=== PATIENT | female | born 1945 | race Caucasian/White ===

== ENCOUNTER 2016-12-30 22:53 | Inpatient (IN) | payer MEDICARE ==
[2016-12-30 23:38] LABS: Bilirubin Negative (Negative); Blood, Urine Moderate (Negative); Glucose, Urine (Dipstick) Negative (Negative); Ketone, Urine Negative (Negative); Nitrite Positive (Negative); Protein, Urine (Dipstick) 30 mg/dL (Neg-Trace); Urobilinogen 0.2 mg/dL (0.2-1.0)
[2016-12-30 23:39] LABS: Bacteria/HPF 1+ HPF (None Seen)
[2016-12-30] MEDS ORDERED: Vancomycin HCl 1.25 GM in Sodium Chloride 0.9% 250 ML 250 ML IVPB SCH (23:45)
[2016-12-30 23:51] LABS: RBC/HPF GREATER THAN 50-TNTC HPF (0-3)
[2016-12-30 23:52] LABS: Hyaline Casts/LPF NONE SEEN LPF (0-3 Hyaline); Transitional Epithelial 0-3 HPF (0-3); Yeast-All Forms 3+ HPF (None Seen)
[2016-12-31] MEDS ORDERED: Gentamicin Sulfate 330 MG in Sodium Chloride 0.9% 100 ML IVPB SCH (00:45)
[2016-12-31 00:54] LABS: Lactic Acid - Sepsis 3.7 mmol/L (0.5-2.2)
--- NOTE | 2016-12-31 01:04 | PDOC.EVN ---
Event Note - Event Note Event Note: [id number] h&p dictated 1. Septic shock 2. Hypotension 3. UTI 4. Lactic acidosis plan; see orders
[2016-12-31] MEDS ORDERED: ZOSYN IVPB PRN (01:10)
[2016-12-31] MEDS: Sodium Chloride 0.9% 1,000 ML IV SCH ×4 (03:15→21:26)
[2016-12-31 03:21] LABS: #Lymphocytes 1.3 thou/uL (1.20-3.40); #Monocytes 1.2 thou/uL (0.11-0.59); #Neutrophils 11.2 thou/uL (1.40-6.50); %Basophils 0.1 % (0.0-1.0); %Eosinophils 0.2 % (0.0-10.0); %Lymphocytes 9.1 % (21.0-51.0); %Monocytes 8.7 % (0.0-10.0); Hematocrit 26.8 % (36.0-47.0); Mean Platelet Volume 6.1 fL (7.4-10.4); Red Blood Cell (RBC) Count 3.18 mill/uL (4.20-5.40); White Blood Cell (WBC) Count 13.7 thou/uL (4.8-10.8)
[2016-12-31] MEDS: Piperacillin/Tazobactam 4.5 GM in Sodium Chloride 0.9% 100 ML IVPB SCH ×3 (03:21→16:31)
[2016-12-31 03:27] VITALS: BMI 23.3
[2016-12-31 03:46] LABS: ALT (SGPT) Less than 7 U/L (8-55); AST (SGOT) 11 U/L (5-34); Alkaline Phosphatase 62 U/L (40-150); Anion Gap 15 mmol/L (10-20); BUN (Urea Nitrogen) 23 mg/dL (9.8-20.1); Bilirubin, Total 0.5 mg/dL (0.2-1.2); Calc. Creatinine Clearance 40 mL/min (70-130); Calcium 7.9 mg/dL (7.8-10.44); Carbon Dioxide 18 mmol/L (23-31); Chloride 106 mmol/L (98-107); Estimated GFR-MDRD 43; Globulin 2.8 g/dL (2.4-3.5); Protein, Total 5.3 g/dL (6.0-8.3)
[2016-12-31 03:49] LABS: Troponin I 0.012 ng/mL (< 0.028)
[2016-12-31] MEDS ORDERED: Diltiazem HCl 125 MG, Admixture Fee 1 EACH in Sodium Chloride 0.9% 100 ML SLOW IVP SCH (04:00)
--- NOTE | 2016-12-31 06:29 | HP ---
DATE OF ADMISSION: 12/31/2016 CHIEF COMPLAINT: Weakness, hypoglycemia. HISTORY OF PRESENT ILLNESS: Patient is a 71-year-old female with the past medical history of hypertension, lung CA, GERD, TIA, diverticulitis initially went to outside ER because of generalized weakness and hypoglycemia. In the outside ER, the patient was found to have sepsis with low blood pressure, so patient was transferred to the ER. Upon ER arrival, the patient was hypotensive , so patient was given 3 liters of fluid bolus. The patient complains of generalized weakness. Denies any nausea, denies any vomiting, denies any fever , denies any chills, denies any chest pain, denies any trouble breathing. PAST MEDICAL HISTORY: As per the HPI. PAST SURGICAL HISTORY: Right upper lobectomy and craniotomy, metastatic lesion of the lung, hysteroscopy, colonic resection. FAMILY HISTORY: Positive for coronary artery disease. SOCIAL HISTORY: Living in a long-term. Denies smoking, no alcohol or drugs. MEDICATIONS: Reviewed. ALLERGIES: Reviewed. REVIEW OF SYSTEMS: Constitutional: Positive for generalized weakness. Eyes: No vision problems. Ears: Denies hearing loss. Neck: Denies any neck pain. Cardiovascular system: Denies any chest pain, denies any palpations. Respiratory system: Denies any cough, denies sputum production. Gastrointestinal: Denies nausea, vomiting. Musculoskeletal: Denies any joint deformities. Cranial nerve system: Right leg positive for decreased range of motion, right side paralysis. Psychiatric: Denies anxiety. All other review of systems are reviewed and are negative. PHYSICAL EXAMINATION: CONSTITUTIONAL/VITAL SIGNS: At the time of H and P performed, blood pressure is 110/71, afebrile, pulse ox 97%. GENERAL APPEARANCE: The patient appears tired. HEENT: Anterior nares normal. Ears, normal. Teeth, intact. Tongue is moist. NECK: Supple, no JVD. CARDIOVASCULAR SYSTEM: S1, S2 present. Regular rate and rhythm, no murmurs, no rubs, no gallops. RESPIRATORY SYSTEM: No wheezing, no rhonchi. Breath sounds bilaterally. GASTROINTESTINAL: Abdomen, soft, nontender, no guarding, no organomegaly, no masses felt. MUSCULOSKELETAL: No edema. CRANIAL NERVOUS SYSTEM: Awake, follows commands. Speech clear. PSYCHIATRIC: Mood is appropriate at this time. INTEGUMENTARY: No rashes seen. LABORATORY DATA: Labs at the time of H and P performed, UA, wbc's 50 to too numerous to count wbc's, rbc's too numerous to count, calcium oxalate crystals seen. Labs done in the outside hospital showed white count of 20.8, hemoglobin 9.8, platelet count is 691. CMP showed sodium 134, potassium 4.5, chloride 95, CO2 22, BUN of 26, creatinine 1.51. Lactic acid 3.7, mag 1.7. alkaline phosphatase 76. ASSESSMENT AND PLAN: The patient is 71 years old female: 1. Sepsis: Last septic shock secondary to urinary tract infection. Plan to start patient on broad-spectrum antibiotics. Plan to give patient a liter of fluid bolus. We will monitor blood pressure closely. Will check blood cultures and urine c&s 2. Hypotension. Blood pressure improved with intravenous fluid bolus. We will hold the Lopressor. We will admit the patient to the intensive care unit. We will notify critical care physician also, we will monitor the patient closely. 3. History of transient ischemic attack. Continue Plavix and aspirin. 4. History of hypertension. Hold blood pressure meds. Her blood pressure is low at this time. 5. Lactic acidosis. Monitor bicarb. Monitor lactate level closely. We will recheck again The case was discussed in detail with the patient. The patient is FULL CODE at this time. LEXXD
[2016-12-31 06:55] LABS: Troponin I Less than 0.010 ng/mL (< 0.028)
[2016-12-31] MEDS: Gabapentin 300 MG CAP PO SCH (08:58)
[2016-12-31] MEDS: Aspirin 81 mg Enteric Coated Tablet PO SCH (08:58)
[2016-12-31] MEDS: Clopidogrel Bisulfate 75 MG TAB PO SCH (08:58)
[2016-12-31] MEDS ORDERED: Vancomycin HCl 1 GM in Sodium Chloride 0.9% 250 ML 250 ML IVPB SCH (09:00)
--- NOTE | 2016-12-31 09:04 | PDOC.PN ---
- Subjective Encounter Start Date: 12/31/16 Encounter Start Time: 08:40 -: old records requested/rev Subjective: denies burning with urination; has indwelling upton catheter -: did not obtain central line last night, was not given pressors -: BP stabilized with IVF - Objective MAR Reviewed: Yes Vital Signs & Weight: Vital Signs (12 hours) Temp Pulse Resp BP Pulse Ox 12/31/16 07:20 97.6 F 105 H 26 H 100 12/31/16 07:00 97.6 F 12/31/16 03:56 97.7 F 12/31/16 02:27 97.7 F 116 H 22 H 100 12/31/16 02:15 97.7 F 102 H 22 H 97/47 L 93 L Weight Weight 136 lb 3.931 oz Most Recent Monitor Data Heart Rate from ECG 92 NIBP 96/52 NIBP BP-Mean 78 Respiration from ECG 18 SpO2 100 I&O: 12/30/16 12/31/16 01/01/17 06:59 06:59 06:59 Intake Total 378 Output Total 105 20 Balance 273 -20 Result Diagrams: 12/31/16 03:13 12/31/16 03:13 Additional Labs: prior urine cultures reveal enterococcus and proteus, sensitive to zosyn Phys Exam - Physical Examination Constitutional: NAD HEENT: PERRLA Neck: no JVD Respiratory: no wheezing, no rales, no rhonchi, clear to auscultation bilateral Cardiovascular: RRR, no significant murmur, no rub Gastrointestinal: soft, non-tender, no distention, positive bowel sounds Musculoskeletal: no edema Neurological: non-focal, moves all 4 limbs Psychiatric: normal affect, A&O x 3 Skin: no rash -: : upton in place, clear yellow urine Dx/Plan (1) Severe sepsis Code(s): A41.9 - SEPSIS, UNSPECIFIED ORGANISM; R65.20 - SEVERE SEPSIS WITHOUT SEPTIC SHOCK Status: Acute Comment: based upon WBC 13.7, lactic acidosis 3.6 , arterial hypotension with concurrent complicated UTI. Arterial hypotension stabilized with IVF, no pressors ultimately given - no evidence of septic shock. follow up urine and blood cultures. Prior cultures positive for enterococcus and proteus and were sensitive to zosyn. Fluoroquinolone discontinued as is on zosyn and vancomycin. Adjust antimicrobial regimen per cultures. (2) UTI (urinary tract infection) Status: Acute Qualifiers: Urinary tract infection type: catheter-associated UTI Indwelling urinary catheter type: indwelling urethral catheter Encounter type: subsequent encounter Qualified Code(s): T83.511D - Infection and inflammatory reaction due to indwelling urethral catheter, subsequent encounter; N39.0 - Urinary tract infection, site not specified; N39.0 - Urinary tract infection, site not specified Comment: chronic indwelling upton for reported urinary retention; patient not good historian on this issue (3) H/O: lung cancer Code(s): Z85.118 - PERSONAL HISTORY OF MALIGNANT NEOPLASM OF BRONCHUS AND LUNG Status: Chronic Comment: s/p Right upper lobectomy 2010 (4) HTN (hypertension) Code(s): I10 - ESSENTIAL (PRIMARY) HYPERTENSION Status: Chronic Qualifiers: Hypertension type: essential hypertension Qualified Code(s): I10 - Essential (primary) hypertension Comment: hold antihypertensives due to severe sepsis until blood pressure rises off of IVF - Plan cont current plan of care, continue antibiotics, DVT proph w/lovenox DVT prophylaxis with lovenox due to severe sepsis, h/o malignancy; no bleed * .
[2016-12-31] MEDS: Enoxaparin Sodium 40 MG/0.4 ML SYRINGE SC SCH (09:29)
[2016-12-31] MEDS: Hydrocortisone Sod Succ/PF 100 mg/2 ml Vial IVP SCH ×3 (09:54→21:26)
--- NOTE | 2016-12-31 10:16 | CT ---
PRELIMINARY REPORT/[facility]/EMERGENCY AFTER-HOURS PROCEDURE: EXAM: CT Chest With Intravenous Contrast CLINICAL HISTORY: 71 years old, female; Pain; Chest pain; Type not specified TECHNIQUE: Axial computed tomography images of the chest with intravenous contrast. Coronal reformatted images were created and reviewed. CONTRAST: 60 mL of ISOVUE administered intravenously. COMPARISON: No relevant prior studies available. FINDINGS: Lungs: There is biapical pleural and parenchymal scarring, greater on the right than on the left. There appears to be mild centrilobular emphysema. There is bibasilar atelectatic change or scarring, cannot exclude a component of bibasilar pneumonitis however. Pleural space: Unremarkable. No pneumothorax. No significant effusion. Heart: Unremarkable. No cardiomegaly. No significant pericardial effusion. Bones/joints: There is diffuse osteopenia and there are degenerative changes of the spine. No acute fracture. No dislocation. Soft tissues: There is a large heterogeneously enhancing mass lesion of the left lateral chest wall and axillary region with this mass measuring 10.0 x 10.0 x 17.0 cm there is subcutaneous edema or ce llulitis surrounding the mass lesion involving the left lateral chest wall and extending towards the lateral aspect of the left breast. This mass lesion is suspicious for malignancy until proven other lieberman. Vasculature: There are atherosclerotic aortic and coronary artery calcifications. No thoracic aortic aneurysm. Lymph nodes: Unremarkable. No enlarged lymph nodes. IMPRESSION: 1. There is a large heterogeneously enhancing mass lesion of the left lateral chest wall and axillar y region with this mass measuring 10.0 x 10.0 x 17.0 cm and there is subcutaneous edema or celluliti s surrounding the mass lesion involving the left lateral chest wall and extending towards the latera l aspect of the left breast. This mass lesion is suspicious for malignancy until proven otherwise. 2. There is biapical pleural and parenchymal scarring, greater on the right than on the left. 3. There appears to be mild centrilobular emphysema. 4. There is bibasilar atelectatic change or scarring, cannot exclude a component of bibasilar pneumo nitis however. Thank you for allowing us to participate in the care of your patient. Dictated and Authenticated by: Rene Tafoya MD 12/31/2016 2:36 AM Central Time ([place] \T\ [place]) FINAL REPORT CT THORAX WITH IV CONTRAST: Date: 12/31/16 HISTORY: Chest pain. Sepsis. IMPRESSION: 1. Large heterogeneously enhancing mass in the left axilla and along the left lateral chest wall me asuring 17.0 cm x 10.0 cm x 10.0 cm. There is adjacent inflammatory stranding. There is also skin th ickening and inflammatory stranding involving portions of the left breast. Malignancy is diagnosis o f exclusion. 2. Bibasilar patchy densities, probably related to bibasilar atelectasis, although pneumonitis is n ot entirely excluded. 3. Asymmetric pleural and parenchymal scarring right lung apex with prominent blebs present. There is suggestion of a small, thin-walled cavitary lesion also in the right upper lobe. 4. Postsurgical changes with surgical clips in the right hilar region. 5. Degenerative changes in the spine with what appears to be midline defects involving a few visual ized lumbar vertebral bodies. There is mild wedge-shaped compression deformities involving a few low er thoracic vertebral bodies of indeterminate age. 6. Ventral abdominal wall hernia which does contain a loop of colon. 7. Dense atherosclerotic vascular calcifications within the coronary arteries, as well as involving the thoracic and visualized upper abdominal aorta. Findings are in agreement with the preliminary report by Anup. POS: [facility]
--- NOTE | 2016-12-31 13:59 | CON ---
DATE OF CONSULTATION: 12/31/2016 HISTORY OF PRESENT ILLNESS: This is a 71-year-old female from [facility] who was tr ansferred here with recurrent urinary tract infection. She is in the ICU because she is hypertensiv e. She has a history of indwelling catheter. This morning she is feeling better. No fever, no chills. Blood pressure has stabilized. PAST MEDICAL HISTORY: 1. Hypertension. 2. Previous tobacco abuse. 3. Chronic obstructive pulmonary disease. PAST SURGICAL HISTORY: 1. Colon resection. 2. Hysterectomy. 3. CLINICAL EDUCATION COORDINATOR tumor removed in 2010. MEDICATIONS FROM HOME: Diovan 80, Macrodantin 50, metoprolol 50, gabapentin 300, Plavix 75, aspirin . ALLERGIES: Multiple; HYDROMORPHINE, HYDROCODONE, ATIVAN. REVIEW OF SYSTEMS: Unremarkable. PHYSICAL EXAMINATION: VITAL SIGNS: Blood pressure 96/52, sats are 100%, respirations 26, temperature 97. CHEST: Chest revealed decreased breath sounds, no wheezing. CARDIAC: Normal S1, S2. ABDOMEN: Soft, no masses. LABORATORY: White count 13,000, H\T\H 8 and 26, platelet count 506,000. Electrolytes are normal. Creatinine 1.2. Urine cultures have been negative. It has grown Enterococcus faecalis. IMPRESSION: 1. Recurrent urinary tract infection on Zosyn and vancomycin. 2. Dehydration. PLAN: Will order a cortisone level to see whether she has got a relative adrenal insufficiency. St art her on low dose hydrocortisone. I will follow while in the ICU and notify Dr. Austin who has seen her in the past.
--- NOTE | 2016-12-31 15:08 | EKG ---
Test Reason : STAT Blood Pressure : / mmHG Vent. Rate : 120 BPM Atrial Rate : 122 BPM P-R Int : 000 ms QRS Dur : 060 ms QT Int : 330 ms P-R-T Axes : 000 -73 046 degrees QTc Int : 466 ms Probable Multifocal atrial tachycardia Left axis deviation Low voltage QRS Possible Anterolateral infarct , age undetermined Significant artifact please repeat EKG Abnormal ECG Confirmed by BINH BETTS ([id number]) on 12/31/2016 3:07:30 PM Referred By: Confirmed By:BINH BETTS
[2016-12-31] MEDS ORDERED: ISOVUE-370 76%-LOCM 1 ML ONE (16:28)
[2016-12-31] MEDS ORDERED: Vancomycin HCl 1 GM in Premix Bag 1 BAG IVPB SCH (23:59)
--- NOTE | 2017-01-01 00:42 | CON ---
DATE OF CONSULTATION: 12/31/2016 REASON FOR CONSULTATION: Left chest wall mass. HISTORY OF PRESENT ILLNESS: Ms. Garrison is a 71-year-old female with a past medical history of lung cancer who presented to the emergency room with weakness. She was found to have a UTI and had sepsis with low blood pressure. She was given 3-liter bolus and admitted to the ICU. She apparently complained of some chest pain so a CT of her chest was performed. There was a large heterogeneous enhancing mass of the left lateral chest wall and axillary region measuring 10 x 10 x 17cm. There was subcutaneous edema and cellulitis surrounding the mass. There was biapical, pleural, and parenchymal scarring. Patient is a poor historian. She states she had an injury to her left axilla about a week ago in the snf. She denies that this mass has been there for any long period of time. Since admission, her sepsis has improved; however , she does have intermittent tachycardia. The patient's cancer history includes the diagnosis of non-small cell carcinoma of the lung with a right lower lobectomy in 2000. She had no metastatic disease at that time. In 2010, she presented with brain metastases. She had a left posterior parieto- occipital craniotomy with excision of the brain tumor. It was a complete removal of the lesion. She did undergo whole brain radiation and chemotherapy was given in [place]. Since then, she has been managed by her primary care and is now bedridden. She resides in a snf. PAST MEDICAL HISTORY: 1. Poorly-differentiated non-small carcinoma in 2000. 2. Metastatic brain mets, status post craniotomy in 2010. 3. Hypertension. 4. Gastroesophageal reflux disease. 5. TIA. 6. Diverticulitis. 7. Obesity. PAST SURGICAL HISTORY: 1. Right upper lobe lobectomy. 2. Craniotomy. 3. Hysterectomy. 4. Colon resection secondary to diverticulitis. FAMILY HISTORY: Positive for coronary artery disease. SOCIAL HISTORY: , lives near family. No alcohol, tobacco, or illicit drug use. There is a remote history of cigarette use. ALLERGIES: As per [employer]. HOME MEDICATIONS: 1. Tylenol p.r.n. 2. Aspirin 81 daily. 3. Dulcolax daily. 4. Plavix 75 mg daily. 5. Neurontin 300 mg daily. 6. Metoprolol succinate 50 mg daily. 7. MiraLax daily. 8. Senokot p.r.n. 9. Diovan 80 mg daily. REVIEW OF SYSTEMS: A ten-point review of systems negative except for noted in HPI. PHYSICAL EXAMINATION: VITAL SIGNS: Temperature 98.2, pulse is 100, respiratory rate 20, BP is 96/54. She is 100% on 2 liters. GENERAL: Obese female, in no acute distress. HEENT: Normocephalic, atraumatic. Pupils are equal and reactive to light. NECK: Supple. CARDIOVASCULAR: Irregular rate and rhythm. She is tachycardic. LUNGS: Clear to auscultation. ABDOMEN: Obese, nontender, bowel sounds are positive. EXTREMITIES: No clubbing, cyanosis, or edema. SKIN: She has a large mass to her left chest wall extends underneath her axilla around to her back; it is purple, tender to touch, and firm. NEUROLOGIC: Nonfocal. PSYCHIATRIC: The patient is oriented and answers questions to the best of her ability. PERTINENT LABORATORY AND X-RAYS: Current WBCs are 13.7, hemoglobin 8.3, hematocrit 26.8, platelet count is 506,000, 82% neutrophils, 10% lymphocytes. PT is 14, INR is 1.1, PTT is 33. Sodium 134, potassium 4.6, chloride 106, CO2 is 18, BUN is 23, creatinine 1.23. Lactic acid is 3.6. Calcium 7.9, total bilirubin is 0.5, AST is 11, ALT is less than 7, alkaline phosphatase is 62, serum total protein is 5.3, albumin 2.5, globulin 2.8. Urine showed 1+ bacteria. Radiology: Per HPI. ASSESSMENT: 1. Large left chest wall mass, probable recurrent malignancy. 2. Urosepsis. DISCUSSION: It is unclear how long the left chest wall mass has been present as the patient is a poor historian. I will try to contact the daughter to discuss with her. Plan to get an ultrasound guided needle biopsy. The patient is an extremely poor candidate for chemotherapy secondary to her functional status. However, we will move forward to at least get a diagnosis. The patient' s blood pressure and heart rate have been unstable today. We will schedule this procedure for tomorrow after I speak with her daughter. Case was discussed with Dr. Floyd. YOJANA
[2017-01-01] MEDS: Piperacillin/Tazobactam 2.25 GM in Sodium Chloride 0.9% 100 ML IVPB SCH ×5 (01:47→23:40)
[2017-01-01] MEDS ORDERED: Piperacillin/Tazobactam 4.5 GM in Sodium Chloride 0.9% 100 ML IVPB SCH (03:00)
[2017-01-01] MEDS: Hydrocortisone Sod Succ/PF 100 mg/2 ml Vial IVP SCH ×4 (03:50→20:18)
[2017-01-01] MEDS: Sodium Chloride 0.9% 1,000 ML IV SCH ×3 (03:51→18:27)
[2017-01-01 05:24] LABS: Anion Gap 12 mmol/L (10-20); BUN (Urea Nitrogen) 19 mg/dL (9.8-20.1); Calc. Creatinine Clearance 54 mL/min (70-130); Calcium 7.4 mg/dL (7.8-10.44); Carbon Dioxide 15 mmol/L (23-31); Chloride 112 mmol/L (98-107); Estimated GFR-MDRD 58
[2017-01-01 05:32] LABS: Band 11 % (5-11); Hematocrit 19.2 % (36.0-47.0); Mean Platelet Volume 6.5 fL (7.4-10.4); Neutrophil 78 % (42-75); Red Blood Cell (RBC) Count 2.34 mill/uL (4.20-5.40); White Blood Cell (WBC) Count 13.6 thou/uL (4.8-10.8)
[2017-01-01] MEDS: Aspirin 81 mg Enteric Coated Tablet PO SCH (10:15)
[2017-01-01] MEDS: Clopidogrel Bisulfate 75 MG TAB PO SCH (10:15)
[2017-01-01] MEDS: Gabapentin 300 MG CAP PO SCH (10:16)
[2017-01-01] MEDS: Enoxaparin Sodium 40 MG/0.4 ML SYRINGE SC SCH (10:16)
--- NOTE | 2017-01-01 12:36 | PDOC.PN ---
- Subjective Encounter Start Date: 01/01/17 Encounter Start Time: 09:40 Pt seen for followup re: severe sepsis. denies chest pain, shortness of breath , fevers or chills. - Objective MAR Reviewed: Yes Vital Signs & Weight: Vital Signs (12 hours) Temp Pulse Resp BP BP Pulse Ox 01/01/17 12:23 97.6 F 84 18 100/52 L 98 01/01/17 08:00 98.5 F 66 18 107/59 L 99 01/01/17 03:52 97.0 F L 73 18 106/61 100 Weight Weight 143 lb 4.8 oz Most Recent Monitor Data Heart Rate from ECG 105 NIBP 96/54 NIBP BP-Mean 59 Respiration from ECG 21 SpO2 100 I&O: 12/31/16 01/01/17 01/02/17 06:59 06:59 06:59 Intake Total 378 1891 Output Total 105 940 Balance 273 951 Result Diagrams: 01/01/17 04:50 01/01/17 04:50 EKG Reviewed by me: Yes (Tele: NSR) Phys Exam - Physical Examination Constitutional: NAD HEENT: moist MMs Neck: supple Respiratory: no wheezing, no rales, no rhonchi, clear to auscultation bilateral Cardiovascular: RRR, no rub Gastrointestinal: soft, non-tender, no distention, positive bowel sounds Musculoskeletal: pulses present Neurological: moves all 4 limbs Lymphatic: no nodes Psychiatric: normal affect Deviation from normal: Oriented to person and place, not to time Skin: no rash, normal turgor, cap refill <2 seconds Dx/Plan (1) Severe sepsis Code(s): A41.9 - SEPSIS, UNSPECIFIED ORGANISM; R65.20 - SEVERE SEPSIS WITHOUT SEPTIC SHOCK Status: Acute (2) UTI (urinary tract infection) Status: Acute Qualifiers: Urinary tract infection type: catheter-associated UTI Indwelling urinary catheter type: indwelling urethral catheter Encounter type: subsequent encounter Qualified Code(s): T83.511D - Infection and inflammatory reaction due to indwelling urethral catheter, subsequent encounter; N39.0 - Urinary tract infection, site not specified; N39.0 - Urinary tract infection, site not specified (3) H/O diverticulitis of colon Code(s): Z87.19 - PERSONAL HISTORY OF OTHER DISEASES OF THE DIGESTIVE SYSTEM Status: Chronic Comment: s/p Colectomy 2013 (4) HLD (hyperlipidemia) Code(s): E78.5 - HYPERLIPIDEMIA, UNSPECIFIED Status: Chronic (5) HTN (hypertension) Code(s): I10 - ESSENTIAL (PRIMARY) HYPERTENSION Status: Chronic Qualifiers: Hypertension type: essential hypertension Qualified Code(s): I10 - Essential (primary) hypertension (6) ERNESTO (acute kidney injury) Code(s): N17.9 - ACUTE KIDNEY FAILURE, UNSPECIFIED Status: Resolved - Plan continue antibiotics, PT/OT, out of bed/ambulate, DVT proph w/lovenox * . Continue IV Zosyn, vancomycin, await cultures (urine/blood). Appreciate oncology service input re; ? met lung cancer. Monitor vital signs, titrate antihypertensives as needed. Review of Systems - Review of Systems Constitutional: negative: Fever, Chills, Sweats, Weakness, Malaise Respiratory: negative: Cough, Dry, Shortness of Breath, Hemoptysis, SOB with Excertion, Pleuritic Pain, Sputum, Wheezing Cardiovascular: negative: Chest Pain, Palpitations, Orthopnea, Paroxysmal Noc. Dyspnea, Edema, Light Headedness Gastrointestinal: negative: Nausea, Vomiting, Abdominal Pain, Diarrhea, Constipation, Melena, Hematochezia Genitourinary: negative: Dysuria, Frequency, Incontinence, Hematuria, Retention - Medications/Allergies Allergies/Adverse Reactions: Allergies Allergy/AdvReac Type Severity Reaction Status Date / Time darbepoetin jerad in albumin Allergy Unknown Verified 02/24/16 09:40 solutio [From Aranesp (in albumin)] hydromorphone HCl Allergy Unknown Verified 02/24/16 09:40 [From Dilaudid] lorazepam [From Ativan] Allergy Unknown Verified 02/24/16 09:40 albumin colloid, human Allergy Verified 02/24/16 09:40 Medications: Current Medications Aspirin (Ecotrin) 81 mg PO DAILY [facility] Last Admin: 01/01/17 10:15 Dose: 81 mg Clopidogrel Bisulfate (Plavix) 75 mg PO DAILY [facility] Last Admin: 01/01/17 10:15 Dose: 75 mg Enoxaparin Sodium (Lovenox) 40 mg SC 0900 [facility] Last Admin: 01/01/17 10:16 Dose: 40 mg Gabapentin (Neurontin) 300 mg PO DAILY [facility] Last Admin: 01/01/17 10:16 Dose: 300 mg Hydrocortisone Sodium Succinate (Solu-Cortef) 50 mg IVP 0300,0900,1500,2100 [facility] Stop: 01/07/17 03:01 Last Admin: 01/01/17 10:16 Dose: 50 mg Sodium Chloride (Normal Saline 0.9%) 1,000 mls @ 150 mls/hr IV .[id number] [facility] Last Admin: 01/01/17 07:33 Dose: 1,000 mls Vancomycin HCl 1 gm/ Device 200 mls @ 200 mls/hr IVPB 2359 [facility] Last Admin: 12/31/16 23:32 Dose: 200 mls Diltiazem HCl 125 mg/Miscellaneous Medication 1 each/ Sodium Chloride 125 mls @ 5 mls/hr SLOW IVP INF [facility] PRN Reason: Protocol Piperacillin Sod/Tazobactam (Sod 2.25 gm/ Sodium Chloride) 100 mls @ 200 mls/ hr IVPB Q6HR [facility] Last Admin: 01/01/17 12:34 Dose: 100 mls Miscellaneous Medication (Pharmacy To Dose) 1 each IVPB PRN PRN PRN Reason: SEPSIS Sodium Chloride (Flush - Normal Saline) 10 ml IVF PRN PRN PRN Reason: Saline Flush Last Admin: 12/31/16 21:26 Dose: 10 ml
--- NOTE | 2017-01-01 14:59 | PRG ---
DATE OF SERVICE: 01/01/2017 SUBJECTIVE: Ms. Garrison has been evaluated. She is in no distress. She is resting comfortably . OBJECTIVE: VITAL SIGNS: She is afebrile. Blood pressure is 107/59, heart rate is 60, respiratory rate is 18 a nd oximetry is 99%. LUNGS: Clear anteriorly. LABORATORY DATA: Her hemoglobin was falling from 8.3-6.1. Sodium 134, potassium 4.6, chloride 112, bicarbonate 15, BUN 9 and creatinine 0.95. IMPRESSION AND PLAN: Anemia, ? blood loss. I reviewed her cortisol level. There was no evidence of adrenal insufficiency. She really probably needs to be transfused since she presented with hypotension. Cultures so far ne gative. With a chronic indwelling Carrera, it is likely that there will be organisms that are nonpathogenic. It looks more like she is dealing with intravascular volume depletion given her improving BUN and cr eatinine. I suspect her baseline creatinine is around 0.4-0.5 since she has very little in the way of muscle mass.
[2017-01-01] MEDS ORDERED: Lidocaine 1% w/Epinephrine 1:100K 20 ML VIAL FS SCH (15:30)
--- NOTE | 2017-01-01 21:02 | OP ---
PREOPERATIVE DIAGNOSIS: Large left axillary mass, suspect possible hematoma. POSTOPERATIVE DIAGNOSIS: Large left axillary mass, suspect possible hematoma. PROCEDURE: Core biopsy, left axillary mass, retrieving his soft tissue and hematoma. SURGEON: Dr. Benjamin Messer. ANESTHESIA: A 1% Xylocaine with epinephrine. PROCEDURE: At the patient's bedside, anterior left axilla and subsequently posterior left axilla pr epared with alcohol, draped in routine fashion. A 1% Xylocaine with epinephrine infiltrated into sk in and subcutaneous tissue, multiple core biopsies obtained, retrieving hematoma and soft tissue, no thing that appeared malignant. These are placed in formalin and submitted to pathology. Patient to lerated the procedure well. Suspect this left axillary mass is a hematoma. We will await pathology and observe.
[2017-01-01 23:28] LABS: Vancomycin, Trough 14.8 ug/mL
--- NOTE | 2017-01-02 01:01 | HP ---
DATE OF CONSULT: 01/01/2017 HISTORY OF PRESENT ILLNESS: Ms. Stacia Garrison is a 71-year-old female who was known to me. In 03/26/2000, I performed a laparotomy, left colon resection, colostomy, Phyllis's pouch, drainage of pelvic abscess and a central line. Patient apparently had this colostomy reversed elsewhere. S he cannot remember where. I have been asked by Alice Farrell to see regarding the left axillary mass . Patient has a history of lobectomy for lung cancer, subsequent craniotomy for resection of the so litary cranial metastasis and subsequent chemotherapy. She is on anticoagulation. She has a histor y of TIA, metastatic lung cancer and is admitted for sepsis secondary to the urinary tract infection . She was noted to have a left axillary mass. She is noted to have a low hemoglobin and has been t ransfused. CAT scan of the chest reveals a large mass in left axilla, thought to be malignant. I h ave been asked to see her regarding biopsy. PAST MEDICAL HISTORY: Reportedly non-small cell carcinoma in 2000, metastatic brain mets and cranio nela in 2010 and chemotherapy for that, hypertension, GERD, TIA, diverticulitis with abscess with co concepcion resection and colostomy that I performed, colostomy reversal elsewhere. PHYSICAL EXAMINATION: VITAL SIGNS: Height is 5 feet, weighs 443 pounds, 24 BMI, temperature 96.9, pulse 94 and blood pres sure 118/55. HEENT: Unremarkable. LUNGS: Clear to auscultation. CARDIAC: Regular rate and rhythm without murmur or gallop. ABDOMEN: Soft. EXTREMITIES: Unremarkable. Left axilla reveals some ecchymosis in the posterior axilla. She has a palpable deep soft tissue mass. LABORATORY DATA: Hemoglobin 6.1 down from 8.3 yesterday. Sodium 134, potassium 4.6 and BUN 19. ASSESSMENT AND PLAN: Left axillary mass. I suspect this is probably a hematoma. There is ecchymos is. We will, however, plan bedside core biopsies to assure. At the time of core biopsies, soft tis tiago, fatty tissue and hematoma was retrieved. I think this is more of a hematoma. We would recomme nd observation. We will await core biopsies. If these come back negative, I think observation is t he best mode of treatment. The patient is currently is on Plavix, Zosyn for urinary tract infection and Lovenox prophylactic dose daily.
[2017-01-02] MEDS: Piperacillin/Tazobactam 2.25 GM in Sodium Chloride 0.9% 100 ML IVPB SCH ×4 (02:51→21:03)
[2017-01-02] MEDS: Sodium Chloride 0.9% 1,000 ML IV SCH ×3 (02:51→15:14)
[2017-01-02] MEDS: Hydrocortisone Sod Succ/PF 100 mg/2 ml Vial IVP SCH ×4 (03:46→21:03)
[2017-01-02 04:57] LABS: Band 2 % (5-11); Hematocrit 28.4 % (36.0-47.0); Mean Platelet Volume 6.6 fL (7.4-10.4); Neutrophil 89 % (42-75); Red Blood Cell (RBC) Count 3.32 mill/uL (4.20-5.40); White Blood Cell (WBC) Count 11.3 thou/uL (4.8-10.8)
[2017-01-02] MEDS: Aspirin 81 mg Enteric Coated Tablet PO SCH (09:24)
[2017-01-02] MEDS: Clopidogrel Bisulfate 75 MG TAB PO SCH (09:25)
[2017-01-02] MEDS: Gabapentin 300 MG CAP PO SCH (09:25)
--- NOTE | 2017-01-02 15:56 | PDOC.PN ---
- Subjective Encounter Start Date: 01/02/17 Encounter Start Time: 08:40 Pt seen for followup re: sepsis. Denies chest pain, shortness of breath, fevers or chills. No nausea or vomiting. - Objective MAR Reviewed: Yes Vital Signs & Weight: Vital Signs (12 hours) Temp Pulse Resp BP Pulse Ox 01/02/17 15:05 97.2 F L 84 18 133/77 94 L 01/02/17 11:07 97.0 F L 82 18 122/70 100 01/02/17 07:39 97.5 F L 64 16 98 01/02/17 07:20 98.6 F 61 18 127/64 100 Weight Weight 146 lb Most Recent Monitor Data Heart Rate from ECG 105 NIBP 96/54 NIBP BP-Mean 59 Respiration from ECG 21 SpO2 100 I&O: 01/01/17 01/02/17 01/03/17 06:59 06:59 06:59 Intake Total 1891 2390 Output Total 940 750 Balance 951 1640 Result Diagrams: 01/02/17 04:08 01/01/17 04:50 EKG Reviewed by me: Yes (Tele: NSR) Phys Exam - Physical Examination Constitutional: NAD HEENT: moist MMs, sclera anicteric, oral pharynx no lesions Neck: supple, full ROM Respiratory: no wheezing, no rales, no rhonchi, clear to auscultation bilateral Cardiovascular: RRR, no rub Gastrointestinal: soft, non-tender, no distention, positive bowel sounds Musculoskeletal: pulses present Neurological: moves all 4 limbs Lymphatic: no nodes Psychiatric: normal affect Deviation from normal: Oriented to person and place, not to time Skin: no rash, normal turgor, cap refill <2 seconds Dx/Plan (1) Severe sepsis Code(s): A41.9 - SEPSIS, UNSPECIFIED ORGANISM; R65.20 - SEVERE SEPSIS WITHOUT SEPTIC SHOCK Status: Acute (2) UTI (urinary tract infection) Status: Acute Qualifiers: Urinary tract infection type: catheter-associated UTI Indwelling urinary catheter type: indwelling urethral catheter Encounter type: subsequent encounter Qualified Code(s): T83.511D - Infection and inflammatory reaction due to indwelling urethral catheter, subsequent encounter; N39.0 - Urinary tract infection, site not specified; N39.0 - Urinary tract infection, site not specified (3) H/O diverticulitis of colon Code(s): Z87.19 - PERSONAL HISTORY OF OTHER DISEASES OF THE DIGESTIVE SYSTEM Status: Chronic Comment: s/p Colectomy 2013 (4) HLD (hyperlipidemia) Code(s): E78.5 - HYPERLIPIDEMIA, UNSPECIFIED Status: Chronic (5) HTN (hypertension) Code(s): I10 - ESSENTIAL (PRIMARY) HYPERTENSION Status: Chronic Qualifiers: Hypertension type: essential hypertension Qualified Code(s): I10 - Essential (primary) hypertension (6) ERNESTO (acute kidney injury) Code(s): N17.9 - ACUTE KIDNEY FAILURE, UNSPECIFIED Status: Resolved - Plan continue antibiotics, PT/OT, out of bed/ambulate, DVT proph w/lovenox * . Continue Zosyn. Urine culture grew Stenotrophomonas maltophila and Acinetobacter baumannii. Blood cultures: no growth so far. Continue statin. Ambulate pt. Discussed cose status with pt, she is DNR. ERNESTO has resolved. Monitor vital signs and titrate antihypertensives as needed. Review of Systems - Review of Systems Constitutional: Weakness. negative: Fever, Chills, Sweats, Malaise Respiratory: negative: Cough, Dry, Shortness of Breath, Pleuritic Pain, Wheezing Cardiovascular: negative: Chest Pain, Palpitations, Orthopnea, Paroxysmal Noc. Dyspnea Gastrointestinal: negative: Nausea, Vomiting, Abdominal Pain, Diarrhea, Constipation Genitourinary: negative: Dysuria, Frequency, Incontinence, Hematuria - Medications/Allergies Allergies/Adverse Reactions: Allergies Allergy/AdvReac Type Severity Reaction Status Date / Time darbepoetin jerad in albumin Allergy Unknown Verified 02/24/16 09:40 solutio [From Aranesp (in albumin)] hydromorphone HCl Allergy Unknown Verified 02/24/16 09:40 [From Dilaudid] lorazepam [From Ativan] Allergy Unknown Verified 02/24/16 09:40 albumin colloid, human Allergy Verified 02/24/16 09:40 Medications: Current Medications Aspirin (Ecotrin) 81 mg PO DAILY [facility] Last Admin: 01/02/17 09:24 Dose: 81 mg Clopidogrel Bisulfate (Plavix) 75 mg PO DAILY [facility] Last Admin: 01/02/17 09:25 Dose: 75 mg Enoxaparin Sodium (Lovenox) 40 mg SC 0900 [facility] Last Admin: 01/01/17 10:16 Dose: 40 mg Gabapentin (Neurontin) 300 mg PO DAILY [facility] Last Admin: 01/02/17 09:25 Dose: 300 mg Hydrocortisone Sodium Succinate (Solu-Cortef) 50 mg IVP 0300,0900,1500,2100 [facility] Stop: 01/07/17 03:01 Last Admin: 01/02/17 15:21 Dose: 50 mg Sodium Chloride (Normal Saline 0.9%) 1,000 mls @ 150 mls/hr IV .Q6H40M [facility] Last Admin: 01/02/17 15:14 Dose: Not Given Diltiazem HCl 125 mg/Miscellaneous Medication 1 each/ Sodium Chloride 125 mls @ 5 mls/hr SLOW IVP INF COLLIN PRN Reason: Protocol Piperacillin Sod/Tazobactam (Sod 2.25 gm/ Sodium Chloride) 100 mls @ 200 mls/ hr IVPB Q6H [facility] Last Admin: 01/02/17 15:22 Dose: 100 mls Miscellaneous Medication (Pharmacy To Dose) 1 each IVPB PRN PRN PRN Reason: SEPSIS Sodium Chloride (Flush - Normal Saline) 10 ml IVF PRN PRN PRN Reason: Saline Flush Last Admin: 12/31/16 21:26 Dose: 10 ml
--- NOTE | 2017-01-02 20:04 | PRG ---
DATE OF SERVICE: 01/02/2017 SUBJECTIVE: Ms. Garrison is doing well. She has no complaints. OBJECTIVE: VITAL SIGNS: She is afebrile, heart rate is 82, respiratory rate is 18, oximetry is 100%, and blood pressure 122/70. LUNGS: Clear. She had core aspiration of axillary mass. Dr. Messer felt this is just a hematoma. She is really n ot aware of how that is occurred. Her hemoglobin is stable after 2 units of blood, she has gone from 6.1 to 9.5. No new lab today. IMPRESSION: 1. Hypertension most likely secondary to blood loss and anemia. 2. Multiple organisms isolated from her urine. She has a chronic indwelling Carrera and these really should not be treated unless we have more clear cut evidence that she has a urinary tract infection . Her antimicrobial therapy should be simplified.
--- NOTE | 2017-01-02 20:24 | ULT ---
LEFT UPPER EXTREMITY VENOUS DUPLEX STUDY: 01/02/17 HISTORY: Left arm edema. Assess for venous thrombosis. Color doppler with spectral analysis with compression studies performed on the veins of the left upp er extremity. Left internal jugular vein is patent. The left subclavian shows normal flow with spectral analysis a nd doppler. The left axillary vein shows normal flow and compression. The left basilic vein, cephali c vein, brachial vein, radial vein and ulnar vein all show normal flow and compression. Subcutaneous edema is documented on the ultrasound images. IMPRESSION: No evidence of venous thrombosis in the left upper extremity. POS: [facility]
[2017-01-03] MEDS: Hydrocortisone Sod Succ/PF 100 mg/2 ml Vial IVP SCH (03:34)
[2017-01-03] MEDS: Piperacillin/Tazobactam 2.25 GM in Sodium Chloride 0.9% 100 ML IVPB SCH (03:34)
[2017-01-03 04:37] LABS: #Basophils 0.1 thou/uL (0.0-0.2); #Lymphocytes 0.5 thou/uL (1.20-3.40); #Monocytes 0.6 thou/uL (0.11-0.59); %Eosinophils 0.3 % (0.0-10.0); %Lymphocytes 4.5 % (21.0-51.0); %Monocytes 5.5 % (0.0-10.0); Hematocrit 28.3 % (36.0-47.0); Mean Platelet Volume 6.6 fL (7.4-10.4); Red Blood Cell (RBC) Count 3.34 mill/uL (4.20-5.40); White Blood Cell (WBC) Count 10.1 thou/uL (4.8-10.8)
[2017-01-03] MEDS: Sodium Chloride 0.9% 1,000 ML IV SCH (04:49)
[2017-01-03 04:51] LABS: Anion Gap 9 mmol/L (10-20); BUN (Urea Nitrogen) 16 mg/dL (9.8-20.1); Calc. Creatinine Clearance 69 mL/min (70-130); Carbon Dioxide 18 mmol/L (23-31); Chloride 112 mmol/L (98-107); Estimated GFR-MDRD 75
[2017-01-03 05:08] LABS: Band 4 % (5-11); Hematocrit 28.7 % (36.0-47.0); Mean Platelet Volume 6.4 fL (7.4-10.4); Neutrophil 83 % (42-75); Red Blood Cell (RBC) Count 3.35 mill/uL (4.20-5.40); White Blood Cell (WBC) Count 10.1 thou/uL (4.8-10.8)
[2017-01-03] MEDS ORDERED: Senokot 8.6 MG TAB PO PRN (07:54)
[2017-01-03] MEDS ORDERED: Mag-Al 1200 mg/1200 mg/30 ML UDCUP PO PRN (07:54)
[2017-01-03] MEDS ORDERED: Diabetic Tussin 200 MG/10 ML UDCUP PO PRN (07:54)
[2017-01-03] MEDS ORDERED: Loratadine 10 MG TAB PO PRN (07:54)
[2017-01-03] MEDS ORDERED: Loperamide HCl 2 MG CAP PO PRN (07:54)
[2017-01-03] MEDS ORDERED: Ondansetron ODT 4 MG TAB PO PRN (07:54)
[2017-01-03] MEDS ORDERED: Ondansetron HCl/PF 4 MG/2 ML Vial IVP PRN (07:54)
[2017-01-03] MEDS ORDERED: Eucerin (Mineral Oil/Petrolatum,White) 30 gm Jar TOP PRN (07:54)
[2017-01-03] MEDS ORDERED: hydrALAZINE 20 MG/ML VIAL SLOW IVP PRN (07:54)
[2017-01-03] MEDS ORDERED: Chloraseptic Spray 180 ml Bottle PO PRN (07:54)
[2017-01-03] MEDS ORDERED: Acetaminophen 325 MG TAB PO PRN (07:54)
[2017-01-03] MEDS ORDERED: Sodium Chloride 0.65% Nasal 44 ML BOT EA NARE PRN (07:54)
[2017-01-03] MEDS ORDERED: Artificial Tears 18 DROP/0.9 ML EA EYE PRN (07:54)
[2017-01-03] MEDS ORDERED: Milk Of Magnesia 30 ML UDCUP PO PRN (07:54)
[2017-01-03] MEDS: Potassium Chloride 20 MEQ TAB PO SCH ×2 (08:19→17:50)
[2017-01-03] MEDS: Aspirin 81 mg Enteric Coated Tablet PO SCH (08:20)
[2017-01-03] MEDS: Gabapentin 300 MG CAP PO SCH (08:20)
[2017-01-03] MEDS: Clopidogrel Bisulfate 75 MG TAB PO SCH (08:20)
[2017-01-03] MEDS: Famotidine 20 MG TAB PO SCH ×2 (08:20→21:05)
[2017-01-03] MEDS: Polyethylene Glycol 3350 17 GM Packet PO SCH (08:24)
[2017-01-03] MEDS: Valsartan 80 MG TAB PO SCH (08:31)
--- NOTE | 2017-01-03 10:56 | PDOC.PN ---
- Subjective Encounter Start Date: 01/03/17 Encounter Start Time: 09:45 -: old records requested/rev Patient seen and examined. pt has diarrhoea. No overnight events - Objective Resuscitation Status: Resuscitation Status DNR:Do Not Resuscitate MAR Reviewed: Yes Vital Signs & Weight: Vital Signs (12 hours) Temp Pulse Resp BP BP Pulse Ox 01/03/17 08:00 98.1 F 58 L 18 131/79 96 01/03/17 05:36 97.7 F 106 H 18 131/82 97 Weight Weight 146 lb Most Recent Monitor Data Heart Rate from ECG 105 NIBP 96/54 NIBP BP-Mean 59 Respiration from ECG 21 SpO2 100 I&O: 01/02/17 01/03/17 01/04/17 06:59 06:59 06:59 Intake Total 2390 440 Output Total 750 650 Balance 1640 -210 Result Diagrams: 01/03/17 04:06 01/03/17 04:06 Phys Exam - Physical Examination Constitutional: NAD HEENT: PERRLA, moist MMs, sclera anicteric Neck: no JVD, supple Respiratory: no wheezing, no rales, no rhonchi Cardiovascular: RRR, no significant murmur, no rub Gastrointestinal: soft, non-tender, no distention, positive bowel sounds Musculoskeletal: no edema, pulses present left upper back posterior aspect bruise Neurological: non-focal, normal sensation Lymphatic: no nodes Psychiatric: normal affect Skin: no rash, normal turgor Dx/Plan (1) Hypokalemia Code(s): E87.6 - HYPOKALEMIA Status: Acute (2) Severe sepsis Code(s): A41.9 - SEPSIS, UNSPECIFIED ORGANISM; R65.20 - SEVERE SEPSIS WITHOUT SEPTIC SHOCK Status: Acute (3) UTI (urinary tract infection) Status: Acute Qualifiers: Urinary tract infection type: catheter-associated UTI Indwelling urinary catheter type: indwelling urethral catheter Encounter type: subsequent encounter Qualified Code(s): T83.511D - Infection and inflammatory reaction due to indwelling urethral catheter, subsequent encounter; N39.0 - Urinary tract infection, site not specified; N39.0 - Urinary tract infection, site not specified (4) H/O diverticulitis of colon Code(s): Z87.19 - PERSONAL HISTORY OF OTHER DISEASES OF THE DIGESTIVE SYSTEM Status: Chronic Comment: s/p Colectomy 2013 (5) H/O: CVA (cerebrovascular accident) Code(s): Z86.73 - PRSNL HX OF TIA (TIA), AND CEREB INFRC W/O RESID DEFICITS Status: Chronic (6) H/O: lung cancer Code(s): Z85.118 - PERSONAL HISTORY OF MALIGNANT NEOPLASM OF BRONCHUS AND LUNG Status: Chronic Comment: s/p Right upper lobectomy 2010 (7) HLD (hyperlipidemia) Code(s): E78.5 - HYPERLIPIDEMIA, UNSPECIFIED Status: Chronic (8) HTN (hypertension) Code(s): I10 - ESSENTIAL (PRIMARY) HYPERTENSION Status: Chronic Qualifiers: Hypertension type: essential hypertension Qualified Code(s): I10 - Essential (primary) hypertension (9) ERNESTO (acute kidney injury) Code(s): N17.9 - ACUTE KIDNEY FAILURE, UNSPECIFIED Status: Resolved - Plan cont current plan of care, continue antibiotics * Dc zosyn and change to IV levaquin * supportive care * medication reviewed as below * symptomatic treatment * skin care * will plan for discharge to [place] soon * check stool for C-diff * medically stable with current treatment. Review of Systems - Review of Systems Other: not reliable due to dementia - Medications/Allergies Allergies/Adverse Reactions: Allergies Allergy/AdvReac Type Severity Reaction Status Date / Time darbepoetin jerad in albumin Allergy Unknown Verified 02/24/16 09:40 solutio [From Aranesp (in albumin)] hydromorphone HCl Allergy Unknown Verified 02/24/16 09:40 [From Dilaudid] lorazepam [From Ativan] Allergy Unknown Verified 02/24/16 09:40 albumin colloid, human Allergy Verified 02/24/16 09:40 Medications: Current Medications Acetaminophen (Tylenol) 650 mg PO Q4H PRN PRN Reason: Headache/Fever or Mild Pain Al Hydroxide/Mg Hydroxide (Maalox) 15 ml PO Q4H PRN PRN Reason: Heartburn or Indigestion Artificial Tears (Tears Naturale) 0 drop EA EYE PRN PRN PRN Reason: Dry Eyes Aspirin (Ecotrin) 81 mg PO DAILY [facility] Last Admin: 01/03/17 08:20 Dose: 81 mg Clopidogrel Bisulfate (Plavix) 75 mg PO DAILY [facility] Last Admin: 01/03/17 08:20 Dose: 75 mg Famotidine (Pepcid) 20 mg PO BID [facility] Last Admin: 01/03/17 08:20 Dose: 20 mg Gabapentin (Neurontin) 300 mg PO DAILY [facility] Last Admin: 01/03/17 08:20 Dose: 300 mg Guaifenesin (Robitussin Sf) 200 mg PO Q4H PRN PRN Reason: Cough Hydralazine HCl (Apresoline) 10 mg SLOW IVP Q4H PRN PRN Reason: Systolic BP > 180 Levofloxacin 500 mg/ Device 100 mls @ 100 mls/hr IVPB Q24HR [facility] Last Admin: 01/03/17 08:24 Dose: 100 mls Loperamide HCl (Imodium) 2 mg PO PRN PRN PRN Reason: Diarrhea/Loose Stools Loratadine (Claritin) 10 mg PO DAILYPRN PRN PRN Reason: Sinus Symptoms Magnesium Hydroxide (Milk Of Magnesium) 30 ml PO DAILYPRN PRN PRN Reason: Constipation Metoprolol Succinate (Toprol Xl) 50 mg PO DAILY [facility] Last Admin: 01/03/17 08:23 Dose: 50 mg Mineral Oil/White Petrolatum (Eucerin Cream) 0 gm TOP BIDPRN PRN PRN Reason: Dry Skin Ondansetron HCl (Zofran Odt) 4 mg PO Q6H PRN PRN Reason: Nausea/Vomiting Ondansetron HCl (Zofran) 4 mg IVP Q6H PRN PRN Reason: Nausea/Vomiting Phenol (Chloraseptic [place] 180 Ml Bot) 0 ml PO PRN PRN PRN Reason: Sore Throat Polyethylene Glycol (Miralax) 17 gm PO DAILY [facility] Last Admin: 01/03/17 08:24 Dose: 17 gm Potassium Chloride (K-Dur) 40 meq PO BID-[facility] Stop: 01/03/17 17:01 Last Admin: 01/03/17 08:19 Dose: 40 meq Senna (Senokot) 2 tab PO HSPRN PRN PRN Reason: Constipation Sodium Chloride (Flush - Normal Saline) 10 ml IVF PRN PRN PRN Reason: Saline Flush Last Admin: 01/02/17 21:03 Dose: 10 ml Sodium Chloride ([place] Nasal [place] 0.65%) 0 ml EA NARE QIDPRN PRN PRN Reason: Nasal Congestion Valsartan (Diovan) 80 mg PO DAILY [facility] Last Admin: 01/03/17 08:31 Dose: 80 mg
[2017-01-04 05:32] LABS: #Basophils 0.1 thou/uL (0.0-0.2); #Eosinphils 0.2 thou/uL (0.0-0.7); #Lymphocytes 1.4 thou/uL (1.20-3.40); #Monocytes 1.2 thou/uL (0.11-0.59); #Neutrophils 11.4 thou/uL (1.40-6.50); %Basophils 0.4 % (0.0-1.0); %Eosinophils 1.3 % (0.0-10.0); %Lymphocytes 9.9 % (21.0-51.0); %Monocytes 8.4 % (0.0-10.0); Hematocrit 33.2 % (36.0-47.0); Mean Platelet Volume 6.4 fL (7.4-10.4); Red Blood Cell (RBC) Count 3.95 mill/uL (4.20-5.40); White Blood Cell (WBC) Count 14.2 thou/uL (4.8-10.8)
[2017-01-04 05:44] LABS: Anion Gap 12 mmol/L (10-20); BUN (Urea Nitrogen) 15 mg/dL (9.8-20.1); Calc. Creatinine Clearance 77 mL/min (70-130); Calcium 8.6 mg/dL (7.8-10.44); Carbon Dioxide 18 mmol/L (23-31); Chloride 110 mmol/L (98-107); Estimated GFR-MDRD 85
[2017-01-04 05:54] LABS: Anisocytosis SLIGHT = 6-15 cells (100X) (0-5/hpf); Band 2 % (5-11); Hematocrit 35.5 % (36.0-47.0); Mean Platelet Volume 6.4 fL (7.4-10.4); Neutrophil 78 % (42-75); Polychromasia SLIGHT = 2-3 cells (100X) (0-2/hpf); Red Blood Cell (RBC) Count 3.91 mill/uL (4.20-5.40); White Blood Cell (WBC) Count 13.6 thou/uL (4.8-10.8)
[2017-01-04] MEDS: Gabapentin 300 MG CAP PO SCH (09:31)
[2017-01-04] MEDS: Valsartan 80 MG TAB PO SCH (09:32)
[2017-01-04] MEDS: Aspirin 81 mg Enteric Coated Tablet PO SCH (09:32)
[2017-01-04] MEDS: Clopidogrel Bisulfate 75 MG TAB PO SCH (09:32)
[2017-01-04] MEDS: Famotidine 20 MG TAB PO SCH (09:34)
[2017-01-04] MEDS: Polyethylene Glycol 3350 17 GM Packet PO SCH (09:39)
--- NOTE | 2017-01-04 12:09 | PDOC.PN ---
- Subjective Encounter Start Date: 01/04/17 Encounter Start Time: 10:30 Patient seen and examined. No new complaints. No overnight events - Objective Resuscitation Status: Resuscitation Status DNR:Do Not Resuscitate MAR Reviewed: Yes Vital Signs & Weight: Vital Signs (12 hours) Temp Pulse Resp BP Pulse Ox 01/04/17 08:00 97.5 F L 107 H 20 100/63 94 L Weight Weight 146 lb Most Recent Monitor Data Heart Rate from ECG 105 NIBP 96/54 NIBP BP-Mean 59 Respiration from ECG 21 SpO2 100 I&O: 01/03/17 01/04/17 01/05/17 06:59 06:59 06:59 Intake Total 440 1480 Output Total 650 900 Balance -210 580 Result Diagrams: 01/04/17 05:09 01/04/17 05:09 Phys Exam - Physical Examination Constitutional: NAD HEENT: PERRLA, moist MMs, sclera anicteric Neck: no JVD, supple Respiratory: no wheezing, no rales, no rhonchi Cardiovascular: RRR, no significant murmur, no rub Gastrointestinal: soft, non-tender, no distention, positive bowel sounds Musculoskeletal: no edema, pulses present Neurological: non-focal, normal sensation Lymphatic: no nodes Psychiatric: normal affect Skin: no rash, normal turgor Dx/Plan (1) Hypokalemia Code(s): E87.6 - HYPOKALEMIA Status: Acute (2) Severe sepsis Code(s): A41.9 - SEPSIS, UNSPECIFIED ORGANISM; R65.20 - SEVERE SEPSIS WITHOUT SEPTIC SHOCK Status: Acute (3) UTI (urinary tract infection) Status: Acute Qualifiers: Urinary tract infection type: catheter-associated UTI Indwelling urinary catheter type: indwelling urethral catheter Encounter type: subsequent encounter Qualified Code(s): T83.511D - Infection and inflammatory reaction due to indwelling urethral catheter, subsequent encounter; N39.0 - Urinary tract infection, site not specified; N39.0 - Urinary tract infection, site not specified (4) H/O diverticulitis of colon Code(s): Z87.19 - PERSONAL HISTORY OF OTHER DISEASES OF THE DIGESTIVE SYSTEM Status: Chronic Comment: s/p Colectomy 2013 (5) H/O: CVA (cerebrovascular accident) Code(s): Z86.73 - PRSNL HX OF TIA (TIA), AND CEREB INFRC W/O RESID DEFICITS Status: Chronic (6) H/O: lung cancer Code(s): Z85.118 - PERSONAL HISTORY OF MALIGNANT NEOPLASM OF BRONCHUS AND LUNG Status: Chronic Comment: s/p Right upper lobectomy 2010 (7) HLD (hyperlipidemia) Code(s): E78.5 - HYPERLIPIDEMIA, UNSPECIFIED Status: Chronic (8) HTN (hypertension) Code(s): I10 - ESSENTIAL (PRIMARY) HYPERTENSION Status: Chronic Qualifiers: Hypertension type: essential hypertension Qualified Code(s): I10 - Essential (primary) hypertension (9) ERNESTO (acute kidney injury) Code(s): N17.9 - ACUTE KIDNEY FAILURE, UNSPECIFIED Status: Resolved - Plan cont current plan of care, continue antibiotics, social worker delinquency prevention * pt and family wants her to go home with home hospice * will change to po levaquin * hospice arrangement today * medication reviewed as below * symptomatic treatment. Review of Systems - Review of Systems ENT: negative: Ear Pain, Ear Discharge, Nose Pain, Nose Discharge, Nose Congestion, Mouth Pain, Mouth Swelling, Throat Pain, Throat Swelling, Other Respiratory: negative: Cough, Dry, Shortness of Breath, Hemoptysis, SOB with Excertion, Pleuritic Pain, Sputum, Wheezing Cardiovascular: negative: Chest Pain, Palpitations, Orthopnea, Paroxysmal Noc. Dyspnea, Edema, Light Headedness, Other Gastrointestinal: negative: Nausea, Vomiting, Abdominal Pain, Diarrhea, Constipation, Melena, Hematochezia, Other Genitourinary: negative: Dysuria, Frequency, Incontinence, Hematuria, Retention , Other Musculoskeletal: negative: Neck Pain, Shoulder Pain, Arm Pain, Back Pain, Hand Pain, Leg Pain, Foot Pain, Other - Medications/Allergies Allergies/Adverse Reactions: Allergies Allergy/AdvReac Type Severity Reaction Status Date / Time darbepoetin jerad in albumin Allergy Unknown Verified 02/24/16 09:40 solutio [From Aranesp (in albumin)] hydromorphone HCl Allergy Unknown Verified 02/24/16 09:40 [From Dilaudid] lorazepam [From Ativan] Allergy Unknown Verified 02/24/16 09:40 albumin colloid, human Allergy Verified 02/24/16 09:40 Medications: Current Medications Acetaminophen (Tylenol) 650 mg PO Q4H PRN PRN Reason: Headache/Fever or Mild Pain Al Hydroxide/Mg Hydroxide (Maalox) 15 ml PO Q4H PRN PRN Reason: Heartburn or Indigestion Artificial Tears (Tears Naturale) 0 drop EA EYE PRN PRN PRN Reason: Dry Eyes Aspirin (Ecotrin) 81 mg PO DAILY [facility] Last Admin: 01/04/17 09:32 Dose: 81 mg Clopidogrel Bisulfate (Plavix) 75 mg PO DAILY [facility] Last Admin: 01/04/17 09:32 Dose: 75 mg Famotidine (Pepcid) 20 mg PO BID [facility] Last Admin: 01/04/17 09:34 Dose: 20 mg Gabapentin (Neurontin) 300 mg PO DAILY [facility] Last Admin: 01/04/17 09:31 Dose: 300 mg Guaifenesin (Robitussin Sf) 200 mg PO Q4H PRN PRN Reason: Cough Hydralazine HCl (Apresoline) 10 mg SLOW IVP Q4H PRN PRN Reason: Systolic BP > 180 Levofloxacin 500 mg/ Device 100 mls @ 100 mls/hr IVPB Q24HR [facility] Last Admin: 01/04/17 09:44 Dose: 100 mls Loperamide HCl (Imodium) 2 mg PO PRN PRN PRN Reason: Diarrhea/Loose Stools Loratadine (Claritin) 10 mg PO DAILYPRN PRN PRN Reason: Sinus Symptoms Magnesium Hydroxide (Milk Of Magnesium) 30 ml PO DAILYPRN PRN PRN Reason: Constipation Metoprolol Succinate (Toprol Xl) 50 mg PO DAILY [facility] Last Admin: 01/04/17 09:32 Dose: 50 mg Mineral Oil/White Petrolatum (Eucerin Cream) 0 gm TOP BIDPRN PRN PRN Reason: Dry Skin Ondansetron HCl (Zofran Odt) 4 mg PO Q6H PRN PRN Reason: Nausea/Vomiting Ondansetron HCl (Zofran) 4 mg IVP Q6H PRN PRN Reason: Nausea/Vomiting Phenol (Chloraseptic [place] 180 Ml Bot) 0 ml PO PRN PRN PRN Reason: Sore Throat Polyethylene Glycol (Miralax) 17 gm PO DAILY [facility] Last Admin: 01/04/17 09:39 Dose: Not Given Senna (Senokot) 2 tab PO HSPRN PRN PRN Reason: Constipation Sodium Chloride (Flush - Normal Saline) 10 ml IVF PRN PRN PRN Reason: Saline Flush Last Admin: 01/04/17 09:48 Dose: 10 ml Sodium Chloride ([place] Nasal [place] 0.65%) 0 ml EA NARE QIDPRN PRN PRN Reason: Nasal Congestion Valsartan (Diovan) 80 mg PO DAILY [facility] Last Admin: 01/04/17 09:32 Dose: 80 mg
--- NOTE | 2017-01-04 13:27 | DIS ---
DATE OF ADMISSION: 12/31/2016 DATE OF DISCHARGE: 01/04/2017 DISCHARGE DISPOSITION: Home with home hospice. PRIMARY DISCHARGE DIAGNOSES: 1. Severe sepsis. 2. Urinary tract infection. 3. Acute kidney failure. 4. Hypokalemia. 5. Metastatic small cell lung cancer. 6. Non-small cell lung cancer metastasis. SECONDARY DISCHARGE DIAGNOSES: Diverticulosis, physical deconditioning, history of cerebrovascular accident, history of small cell lung cancer, hypertension, and dyslipidemia. PRIMARY PROCEDURE/OPERATION: Skin biopsy from axilla mass and that report came back as metastatic, poorly differentiated non-small cell carcinoma. RADIOLOGICAL INVESTIGATION: CT chest on admission showed large heterogeneously enhancing mass on th e left lateral chest wall and axillary region with subcutaneous edema and cellulitis involving left lateral chest wall extending towards lateral aspect of left breast consistent with malignancy. Biap ical pleural and parenchymal scarring, basilar atelectasis. Vascular ultrasound was negative for an y DVT in the left upper extremity. SIGNIFICANT LABORATORY DATA: WBC 14.2, hemoglobin 10.6, platelet 473. Sodium 136, potassium 3.7, B UN 15, creatinine 0.68, and calcium 8.6. Urinalysis suggestive of UTI. Urine culture grew Stenotro phomonas and acinetobacter. Blood culture negative. C. diff negative. DISCHARGE MEDICATIONS: Levaquin 500 mg p.o. daily for 7 more days, Tylenol 650 mg q.4 hourly p.r.n. , aspirin 81 mg p.o. daily, Dulcolax 10 mg p.o. daily p.r.n., Plavix 75 mg p.o. daily, Neurontin 300 mg p.o. daily, metoprolol XL 50 mg p.o. daily, Macrobid 50 mg p.o. daily, MiraLax 17 grams p.o. andres ly, Senokot 2 tablets p.o. at bedtime p.r.n., Diovan 80 mg p.o. daily. CONTRAINDICATIONS: None. CODE STATUS: DNR. INPATIENT CONSULTANTS: Dr. Crane with [facility] was following while in hospital. Dr. Ford was consulted while in hospital. Dr. Messer was consulted for skin biopsy. TEST RESULTS PENDING ON DISCHARGE: None. ALLERGIES: DARBEPOETIN, HYDROMORPHONE, LORAZEPAM. DISCHARGE PLAN: Post hospital, patient is discharged home with home hospice. Subsequently, patient will follow up with the above consultants. HOSPITAL COURSE: A 71-year-old female who was admitted on 12/31/[address] Dutton, please see sd s H\T\P for further details. Mainly, this patient came to ER for weakness and hypoglycemia. She wa s not able to provide any good history. She was complaining of pain in her left shoulder and over t here, there was bruise like mass. We did CT thorax which showed large enhancing mass on the left si de of the chest wall that was going on the back as well as on the front, we did breast skin biopsy w ith the help of Dr. Messer and biopsy report came back as positive for metastatic non-small cell dank g cancer. This patient has previous history of lung cancer. We consulted Oncology and they recomme nded that this patient is not a candidate for any kind of specific treatment and they recommended ho spice care. This patient has severely poor performance status. She is not a candidate for any kind of treatment. This patient was previously living at [facility], but patient wanted to go home with sole law and family member on her wish. With the help of family service caseworker, we are arranging home hospice. At this point, the patient is medically stable for discharge. Her prognosis skilled nursing is very poor. We are changing to p.o. Levaquin. While in hospital initially she was given Zosyn and vancomycin, but based on culture we changed to p.o. Levaquin on discharge. Because of antibiotics, she had diar eitan and we ruled out Clostridium difficile infection as well. The patient is seen and examined at bedside today. Please see my progress note from today for furth er details. This patient's blood pressure is running low and that is why the patient's blood pressu re medication will not be given if blood pressure is less than 120 systolic. That was communicated. Overall, patient is medically stable for discharge today.
[2017-01-04 17:12] VITALS: BP 115/83; TEMP 98.7
== END 2017-01-04 17:39 | DRG 698 ==
LOC: ERS 22:53 → CCU 12-31 00:55 → IMCU/EMU 12-31 12:35 → T4-B 01-02 17:25
PROVIDERS: ADMIT Internal Medicine; ATTEND Internal Medicine
PROC: 0XB53ZX Excision of Left Axilla, Percutaneous Approach, Diagnostic (ICD-10-PCS; principal; 2017-01-01)
DX: T83.518A Infection and inflammatory reaction due to other urinary catheter, initial encounter (principal); A41.9 Sepsis, unspecified organism; N17.9 Acute kidney failure, unspecified; E87.2 Acidosis; C79.89 Secondary malignant neoplasm of other specified sites; I95.9 Hypotension, unspecified; J44.9 Chronic obstructive pulmonary disease, unspecified; N39.0 Urinary tract infection, site not specified; Z85.118 Personal history of other malignant neoplasm of bronchus and lung; Z85.841 Personal history of malignant neoplasm of brain; K21.9 Gastro-esophageal reflux disease without esophagitis; I10 Essential (primary) hypertension; Z79.01 Long term (current) use of anticoagulants; Z86.73 Personal history of transient ischemic attack (TIA), and cerebral infarction without residual deficits; Z90.49 Acquired absence of other specified parts of digestive tract; E16.2 Hypoglycemia, unspecified; Z51.5 Encounter for palliative care; E87.6 Hypokalemia; E78.5 Hyperlipidemia, unspecified; Z66 Do not resuscitate; Z87.891 Personal history of nicotine dependence; E86.0 Dehydration; Z74.01 Bed confinement status; D64.9 Anemia, unspecified; Z90.2 Acquired absence of lung [part of]; R33.9 Retention of urine, unspecified
CPT/HCPCS: 36415; 36430; 71260; 80048; 80053; 80202; 81015; 82378; 82533; 83605; 84484; 85007; 85025; 85027; 86850; 86900; 86901; 87040; 87077; 87086; 87186; 87324; 87449; 88305; 93005; 93010; 96365; 96366; J1580; J1650; J1720; J1956; J2001; J2543; J3370; J7050; P9016